=== PATIENT | male | born 1990 | race Two or more races ===

== ENCOUNTER 2020-11-24 19:41 | Emergency (ER) | payer OTHER | END 2020-11-24 22:30 | disposition home or self-care (01) | LOC: FER 19:41 | DX: S93.402A Sprain of unspecified ligament of left ankle, initial encounter (principal); F17.210 Nicotine dependence, cigarettes, uncomplicated; Z98.890 Other specified postprocedural states; W19.XXXA Unspecified fall, initial encounter; Y92.009 Unspecified place in unspecified non-institutional (private) residence as the place of occurrence of the external cause | CPT/HCPCS: 73610 ==

== ENCOUNTER 2021-04-22 15:07 | Emergency (ER) | payer OTHER ==
[2021-04-22] MEDS ORDERED: NORCO 5-325 TA1 EACH PO (15:43)
== END 2021-04-22 16:15 | disposition home or self-care (01) ==
LOC: FER 15:07
DX: S93.401A Sprain of unspecified ligament of right ankle, initial encounter (principal); F17.210 Nicotine dependence, cigarettes, uncomplicated; X50.0XXA Overexertion from strenuous movement or load, initial encounter; Y93.41 Activity, dancing
CPT/HCPCS: 73610; 99283